=== PATIENT | female | born 1980 | race Hispanic/Latino ===

== ENCOUNTER 2019-05-04 12:27 | Emergency (ER) | payer SELFPAY ==
--- NOTE | 2019-05-04 13:01 | Event Note ---
ED Screening Note Date of service: 05/04/19 Time: 13:00 ED Screening Note: 38 y o female presents to ED cc of abd pain and irregular vaginal bleeding also cc of skin rash aFTER EATING A PIZZA pT AT [place] This initial assessment/diagnostic orders/clinical plan/treatment(s) is/are subject to change based on patients health status, clinical progression and re- assessment by fellow clinical providers in the ED. Further treatment and workup at subsequent clinical providers discretion. Patient/guardian urged not to elope from the ED as their condition may be serious if not clinically assessed and managed. Initial orders include: labs, ua,upt
[2019-05-04 13:51] LABS: Basophils # (Auto) 0.1 K/mm3 (0.0-0.1); Basophils % (Auto) 1.4 % (0.0-1.8); Eosinophils # (Auto) 0.1 K/mm3 (0.0-0.4); Eosinophils % (Auto) 1.1 % (0.0-4.3); Hematocrit 43.9 % (30.3-42.9); Hemoglobin 14.9 gm/dl (10.1-14.3); Lymphocytes % (Auto) 10.3 % (13.4-35.0); Mean Corpuscular HGB Conc 34 % (30-34); Mean Corpuscular Volume 87 fl (79-97); Monocytes # (Auto) 0.8 K/mm3 (0.0-0.8); Monocytes % (Auto) 7.5 % (0.0-7.3); Platelet Count 249 K/mm3 (140-440); Red Blood Count 5.08 M/mm3 (3.65-5.03); Red Cell Distribution Width 12.8 % (13.2-15.2)
[2019-05-04 14:11] LABS: Alanine Aminotransferase 18 units/L (7-56); Albumin 4.6 g/dL (3.9-5); BUN/Creatinine Ratio 26; Blood Urea Nitrogen 18 mg/dL (7-17); Calcium 9.8 mg/dL (8.4-10.2); Hemolysis Index 4
[2019-05-04] MEDS ORDERED: DOXYCYCLINE 100 MG CAPSULE PO ONE (14:24)
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
[2019-05-04 15:59] LABS: Bacteria,Urine 1+ /HPF (Negative); Bilirubin,Urine NEG (Negative); Blood,Urine LG (Negative); Color,Urine Yellow (Yellow); Mucus,Urine 3+ /HPF
[2019-05-04 16:03] LABS: HCG Qualitative,Urine Negative (Negative)
[2019-05-04 16:10] LABS: Benzodiazepines Screen,Urine PRESUMPTIVE NEGATIVE; Cocaine Screen,Urine PRESUMPTIVE NEGATIVE; Methadone Screen,Urine PRESUMPTIVE NEGATIVE; Opiate Screen,Urine PRESUMPTIVE NEGATIVE
[2019-05-04 16:26] LABS: Amphetamine Screen,Urine PRESUMPTIVE POSITIVE; Cannabinoid Screen,Urine PRESUMPTIVE POSITIVE
--- NOTE | 2019-05-04 16:53 | XRay Report ---
ABDOMEN 2 VIEW(S) INDICATION / CLINICAL INFORMATION: abd pain. COMPARISON: None available. FINDINGS: TUBES / LINES: None. BOWEL GAS PATTERN/EXTRALUMINAL GAS: No significant abnormality. No pneumatosis or secondary signs of free air. ADDITIONAL FINDINGS: There are bilateral tubal ligation clips. IMPRESSION: 1. No significant abnormality. Signer Name: Cj Echavarria MD Signed: 05/04/2019 4:49 PM Workstation Name: [id number]
[2019-05-04] MEDS ORDERED: traZODone 50 MG TAB PO ONE (22:59)
[2019-05-05] MEDS: DOXYCYCLINE 100 MG CAPSULE PO SCH ×3 (01:31→22:30)
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
[2019-05-05] MEDS ORDERED: traZODone 50 MG TAB PO SCH (22:00)
[2019-05-06 01:55] VITALS: BP 110/66
== END 2019-05-06 02:35 ==
LOC: EEVIPCON 12:27 → ED 12:27
DX: F23 Brief psychotic disorder (principal); F17.200 Nicotine dependence, unspecified, uncomplicated; Z04.6 Encounter for general psychiatric examination, requested by authority; Z88.5 Allergy status to narcotic agent; Z88.0 Allergy status to penicillin; Z88.2 Allergy status to sulfonamides
CPT/HCPCS: 36415; 74019; 80053; 80307; 80320; 81001; 81025; 85025; G0480

== ENCOUNTER 2019-11-07 10:17 | Emergency (ER) | payer MEDICAID ==
[2019-11-07 10:30] VITALS: BP 108/63
[2019-11-07] MEDS ORDERED: ACETAMINOPHEN 500 MG TAB PO ONE (11:35)
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
== END 2019-11-07 11:50 | disposition home or self-care (01) ==
LOC: ED 10:17
DX: R10.9 Unspecified abdominal pain (principal); F17.200 Nicotine dependence, unspecified, uncomplicated; Z79.899 Other long term (current) drug therapy; Z88.6 Allergy status to analgesic agent; Z88.0 Allergy status to penicillin; Z88.2 Allergy status to sulfonamides; W10.9XXA Fall (on) (from) unspecified stairs and steps, initial encounter; Y93.89 Activity, other specified; Y92.89 Other specified places as the place of occurrence of the external cause; Y99.8 Other external cause status
CPT/HCPCS: 99282